=== PATIENT | female | born 1940 | race Caucasian/White ===

== ENCOUNTER 2018-03-02 09:03 | Emergency (ER) | payer OTHER, BC ==
[~2018-03-02] VITALS: Ht 177.8 cm; Wt 72.3 kg
[~2018-03-02 09:03] MED LIST: ENDOCET 5-3251 EACH PO
[2018-03-02 09:18] VITALS: BP 101/81
[2018-03-02 09:59] LABS: BASOPHIL (%) 0.4 % (0-1); EOSINOPHIL (%) 1.4 % (0-5); EOSINOPHIL COUNT 0.1 K/uL (0-0.3); HEMATOCRIT 42.4 % (36.0-46.0); IMMATURE GRANULOCYTE (%) 0.4 % (0.0-0.7); LYMPHOCYTE (%) 22.4 % (15-42); LYMPHOCYTE COUNT 1.1 K/uL (1.0-2.8); MCH 32.5 PG (29.0-34.0); MCV 98.4 FL (83-99); MONOCYTE (%) 8.9 % (3-12); MONOCYTE COUNT 0.4 K/uL (0-0.8); NEUTROPHIL (%) 66.5 % (45-76); NEUTROPHIL COUNT 3.3 K/uL (1.8-6.4); PLATELET COUNT 183 K/uL (156-360); RBC DIS.WIDTH-CV 13.4 % (11.8-14.6); RBC DIS.WIDTH-SD 48.5 % (39-53); RED BLOOD COUNT 4.31 M/uL (3.80-5.20)
[2018-03-02 10:08] LABS: CHLORIDE 103 mEq/L (99-109); POTASSIUM 3.4 mEq/L (3.7-5.4); SODIUM 140 mEq/L (136-147)
[2018-03-02 10:10] LABS: GLUCOSE 144 mg/dL (70-99)
[2018-03-02 10:14] LABS: CREATININE 0.8 mg/dL (0.6-1.3); GFR ESTIMATE (CALCULATED) > 59 mL/min/
[2018-03-02 10:15] LABS: UREA NITROGEN (BUN) 21 mg/dL (9-23)
[2018-03-02] MEDS ORDERED: TYLENOL WITH C1 EACH PO (11:07)
== END 2018-03-02 12:07 | disposition home or self-care (01) ==
LOC: EME → EDBD 09:03 → EME 12:07
PROVIDERS: Emergency Medicine
DX: S01.81XA Laceration without foreign body of other part of head, initial encounter (principal); S43.084A Other dislocation of right shoulder joint, initial encounter; W18.30XA Fall on same level, unspecified, initial encounter; W22.8XXA Striking against or struck by other objects, initial encounter; Y92.000 Kitchen of unspecified non-institutional (private) residence as the place of occurrence of the external cause; Z87.891 Personal history of nicotine dependence
CPT/HCPCS: 70450; 73030; 80048; 85025; 99281; 99285